=== PATIENT | male | born 1955 | race Caucasian/White ===

== ENCOUNTER → 2017-03-20 | Outpatient (CLI) | payer OTHER ==
[~2017-03-20] MED LIST: GADOBUTROL 10 MMOL/10 ML PFS ONE; OMNIPAQUE 350 MG/ML, 75ML BOTTLE ONE
== END ==
LOC: CFH 12:05
PROVIDERS: ATTEND Psychiatry & Neurology Neurology
DX: I67.9 Cerebrovascular disease, unspecified (principal); R90.82 White matter disease, unspecified; H47.011 Ischemic optic neuropathy, right eye
CPT/HCPCS: 70543; 71260; A9585; Q9967

== ENCOUNTER → 2017-04-15 | Outpatient (CLI) | payer OTHER | END | disposition home or self-care (01) | LOC: CFH 12:19 | PROVIDERS: ATTEND Psychiatry & Neurology Neurology | DX: I65.23 Occlusion and stenosis of bilateral carotid arteries (principal); H47.011 Ischemic optic neuropathy, right eye | CPT/HCPCS: 93306; 93880 ==

== ENCOUNTER → 2017-04-16 | Outpatient (CLI) | payer OTHER ==
[~2017-04-16] MED LIST changes: -GADOBUTROL 10 MMOL/10 ML PFS ONE; +GADOBUTROL 10 MMOL/10 ML VIAL ONE; -OMNIPAQUE 350 MG/ML, 75ML BOTTLE ONE
== END ==
LOC: CFH 14:59
PROVIDERS: ATTEND Psychiatry & Neurology Neurology
DX: H47.011 Ischemic optic neuropathy, right eye (principal)
CPT/HCPCS: 70544; 70549; A9585